=== PATIENT | female | born 1985 ===

== ENCOUNTER 2023-02-24 18:32 | Emergency (ER) | payer OTHER, SELFPAY ==
[2023-02-24] VITALS (7 sets, daily range): BP systolic 136–165; BP diastolic 63–87; PULSE 102–113; RESP 17–24; TEMP 36.5; O2SAT 24–100; BMI 33.8
--- NOTE | 2023-02-24 18:41 | ED.ALLEREA ---
HPI - Allergic Reaction General Chief complaint: Allergic Reaction Stated complaint: thinks allergic reaction,SOB,swollen,hives Time Seen by Provider: 02/24/23 18:40 Source: patient Limitations: no limitations History of Present Illness HPI narrative: This is a 37-year-old female with no known medical issues. Patient states she was in the shower when she started to feel itchy, developed hives all over and swelling and bumps by her eyes, she has developed a little swelling of her upper lip, she felt tight in her chest. She does not appreciate any tightness in her throat or swelling of her tongue or the back of her airway but states she has to clear her throat. She did have some diarrhea immediately after all this started. She has not had similar symptoms in the past she took 2 tablets 25 mg Benadryl which had which has not made any improvement. She notes she had [place] meal in a [place] about 4:35 p.m. which she normally gets from a restaurant. And then developed symptoms about an hour prior to arrival. Patient has not had similar issues in the past. She does not take any daily medications. No prior surgeries. No known drug allergies. No known seasonal or food allergies. She does not recall any other triggers or things that might have caused her symptoms. No tobacco, occasional alcohol, no illicit. Related Data Previous Rx's Medication Instructions Recorded epinephrine 0.3 mg/0.3 mL 0.3 ml IM Q5-15M PRN anaphylaxis 02/24/23 injection, auto-injector (EpiPen #2 ea 2-Frank) prednisone 20 mg tablet 40 mg PO DAILY #10 tabs 02/24/23 Allergies Allergy/AdvReac Type Severity Reaction Status Date / Time No Known Drug Allergies Allergy Verified 02/24/23 18:44 Review of Systems Review of Systems ROS Unobtainable: All systems reviewed & are unremarkable except as noted in HPI and below Patient History Social History Smoking Status: Never smoker Exam Narrative Exam Narrative: GEN: well nourished, well appearing female, alert and oriented x 3, patient appears to be in mild distress. HEENT: Atraumatic, pupils are equal round reactive to light, extraocular movements are intact, nares are clear, TMs are clear with no fluid, there is no conjunctival pallor. Throat is clear without any exudates, erythema, tonsillar enlargement or uvular deviation, patient has some mild swelling of the upper lip. Patient has a little bit of swelling bilateral upper lids. No other oropharyngeal involvement, clear speech she is cleared her throat a few times but has no hoarseness or stridor. HEART: Regular rate and rhythm without murmur, clicks, rubs. LUNGS:Lungs clear to auscultation, no wheezes, rales, crackles, chest moves symmetrically, wheeze. No tachypnea. ABD:bowel sounds normal, soft, non-tender, no guarding, rebound, rigidity, no masses noted, no hepatosplenomegaly MSCL: full range of motion, normal gait NEURO:CN 2-12 intact, sensation normal SKIN: Patient does have some patchy erythema throughout her extremities. Initial Vital Signs Initial Vital Signs: Vital Signs Temperature 97.7 F 02/24/23 18:35 Pulse Rate 104 H 02/24/23 18:35 Respiratory Rate 24 02/24/23 18:35 Blood Pressure 165/87 H 02/24/23 18:35 Pulse Oximetry 24 L 02/24/23 18:35 Oxygen Delivery Method Room Air 02/24/23 18:35 Course Orders Ordered: Discontinued Medications Diphenhydramine HCl (Diphenhydramine 50 Mg/Ml Vial) 50 mg IV NOW ONE Stop: 02/24/23 18:41 Last Admin: 02/24/23 18:52 Dose: 25 mg Documented By: PAOLA Epinephrine HCl (Epinephrine 1 Mg/Ml) 0.5 mg IM NOW ONE Stop: 02/24/23 18:43 Last Admin: 02/24/23 18:49 Dose: 0.5 mg Documented By: PAOLA Famotidine (Famotidine 20 Mg/2 Ml Vial) 20 mg IV NOW KRYSTAL Last Admin: 02/24/23 18:57 Dose: 20 mg Documented By: PAOLA Sodium Chloride (Normal Saline 0.9%) 1,000 mls @ 1,000 mls/hr IV BOLUS ONE Stop: 02/24/23 19:44 Last Infusion: 02/24/23 21:11 Dose: 0 mls/hr Documented By: Admin: 02/24/23 18:57 Dose: 1,000 mls/hr Documented By: PAOLA Methylprednisolone (Methylprednisolone 125 Mg/2 Ml Vial) 125 mg IV NOW ONE Stop: 02/24/23 18:41 Last Admin: 02/24/23 18:52 Dose: 125 mg Documented By: PAOLA Vital Signs Vital signs: Vital Signs - 8 hr 02/24/23 18:35 02/24/23 19:15 02/24/23 19:30 Temperature 97.7 F Pulse Rate 104 H 102 H Respiratory Rate 24 23 Blood Pressure 165/87 H 148/69 H Pulse Oximetry 24 L 99 Oxygen Delivery Method Room Air 02/24/23 19:30 02/24/23 19:45 02/24/23 19:47 Temperature Pulse Rate 107 H 113 H Respiratory Rate 17 24 Blood Pressure 136/63 Pulse Oximetry 99 99 Oxygen Delivery Method 02/24/23 19:47 02/24/23 20:00 02/24/23 20:00 Temperature Pulse Rate 109 H 109 H Respiratory Rate 20 18 Blood Pressure 144/69 H Pulse Oximetry 100 97 Oxygen Delivery Method Room Air 02/24/23 20:15 Temperature Pulse Rate 105 H Respiratory Rate 17 Blood Pressure Pulse Oximetry 96 Oxygen Delivery Method MDM - Allergic Reaction MDM Narrative Medical decision making narrative: This is a 37-year-old female who is having what seems to be an allergic reaction. She is not had any prior issues in the past. She developed itchy hive-like rash all over, some swelling of her eyes notes little bit swelling of her upper lip she does not appreciate any tightness in her throat but has been clearing her throat and felt tight in her chest. She was slightly tachycardic and hypertensive upon arrival. Normal speech easy work of breathing but patient does appear to be having a reaction. She did have a recent meal from a restaurant it is a meal she typically has but no other known clear triggers. Patient was given 25 Benadryl she would had oral but Benadryl, Solu-Medrol, Pepcid and because of airway swelling and multiple systems so epinephrine was given. On recheck after Epinephrine patient is feeling improved 2121: recheck patient continues to feel improved no rebound symptoms. She feels comfortable returning home at this time. Discussed in continue with oral Benadryl if she is any very mild symptoms, steroids orally for the next 5 days, prescription for EpiPen was provided. Discussed return precautions keeping track many potential triggers she does not have any known cause for her symptoms today. Critical Care Time Critical Care Time Critical Care Time: Yes Total Critical Care Time: 25 Attestation: The high probability of a clinically significant, sudden or life threatening deterioration of the [cardiac, airway] system(s) required my full and direct attention, intervention and personal management. The aggregate critical care time was [] minutes. This time is in addition to time spent performing reported procedures but includes the following: [x] Data Review and interpretation [x] Patient assessment and monitoring of vital signs [x] Documentation [x] Medication orders and management Discharge Plan Departure Patient Disposition: Home Clinical Impression: Anaphylaxis Instructions: DI for Anaphylaxis Activity Restrictions/Additional Instructions: It is unclear what caused your your allergic reaction today. Please keep track of any potential triggers. You can continue to take Benadryl every 6 hours as needed for any mild symptoms. Take prednisone once daily until gone. You can start this in the morning. A prescription for EpiPen has been provided keep 1 with you at all times. These do so please have them replaced when they . Prescription sent to [facility] on [address] in [place]. Please return or go to the closest ER if you have recurrent symptoms if you are having narrowing of your airway, swelling of lips, tongue or mouth, for his current rash, vomiting or diarrhea, chest pain or shortness of breath or other new or concerning changes. Prescriptions: New epinephrine [EpiPen 2-Frank] 0.3 mg/0.3 mL auto-injector 0.3 ml IM Q5-15M PRN (Reason: anaphylaxis) Qty: 2 0RF Rx Instructions: do not exceed 3 doses per episode prednisone 20 mg tablet 40 mg PO DAILY Qty: 10 0RF Stand Alone Forms: Patient Portal/API
[2023-02-24] MEDS: EPINEPHrine 1 MG/ML 0.5 MG IM (18:49)
[2023-02-24] MEDS: methylPREDNISolone 125 MG/2 ML VIAL IV (18:52)
[2023-02-24] MEDS: diphenhydrAMINE 50 MG/ML VIAL IV (18:52)
[2023-02-24] MEDS: FAMOTIDINE 20 MG/2 ML VIAL IV (18:57)
[2023-02-24] MEDS: SODIUM CHLORIDE 0.9% 1,000 ML 1000 ML IV (18:57)
== END 2023-02-24 21:32 | disposition home or self-care (01) ==
PROVIDERS: Emergency Provider Emergency Medicine
DX: T78.2XXA Anaphylactic shock, unspecified, initial encounter (principal)
CPT/HCPCS: 36415; 96372; 96374; 96375; 99284; J0171; J1200; J2930